=== PATIENT | female | born 1990 ===

== ENCOUNTER 2022-06-18 09:26 | Outpatient (CLI) | payer OTHER | END 2022-06-18 09:59 | disposition home or self-care (01) | LOC: PRENATAL 09:26 | PROVIDERS: ATTEND Obstetrics & Gynecology Maternal & Fetal Medicine | DX: O26.849 Uterine size-date discrepancy, unspecified trimester (principal); O35.9XX0 Maternal care for (suspected) fetal abnormality and damage, unspecified, not applicable or unspecified; Z3A.32 32 weeks gestation of pregnancy ==

== ENCOUNTER 2022-07-27 01:16 | Inpatient (IN) | payer OTHER ==
[~2022-07-27] VITALS: Ht 165.1 cm; Wt 3.6 kg
[2022-07-27] MEDS ORDERED: PRENATAL TABLE1 EAC1 PO (01:43)
== END 2022-07-29 12:13 | disposition home or self-care (01) | DRG 768 ==
LOC: LDR 01:16 → OB/GYN 13:17
PROVIDERS: ADMIT Obstetrics & Gynecology; ATTEND Obstetrics & Gynecology
PROC: 10E0XZZ Delivery of Products of Conception, External Approach (ICD-10-PCS; principal; 2022-07-27)
PROC: 0DQR0ZZ Repair Anal Sphincter, Open Approach (ICD-10-PCS; 2022-07-27)
PROC: 4A1HXCZ Monitoring of Products of Conception, Cardiac Rate, External Approach (ICD-10-PCS; 2022-07-27)
DX: O70.21 Third degree perineal laceration during delivery, IIIa (principal); Z37.0 Single live birth; O66.0 Obstructed labor due to shoulder dystocia; O99.824 Streptococcus B carrier state complicating childbirth; Z3A.37 37 weeks gestation of pregnancy; Z20.822 Contact with and (suspected) exposure to COVID-19